=== PATIENT | female | born 1990 ===

== ENCOUNTER 2019-06-14 13:24 | Emergency (ER) | payer SELFPAY ==
--- NOTE | 2019-06-14 13:39 | Event Note ---
ED Screening Note Date of service: 06/14/19 Time: 13:36 ED Screening Note: Pt presents via police for psych eval boyfriend called police because she was cutting her arm She SI/HI-states she cuts herself to feel better This initial assessment/diagnostic orders/clinical plan/treatment(s) is/are subject to change based on patients health status, clinical progression and re- assessment by fellow clinical providers in the ED. Further treatment and workup at subsequent clinical providers discretion. Patient/guardian urged not to elope from the ED as their condition may be serious if not clinically assessed and managed. Initial orders include:
[2019-06-14 14:17] LABS: Hematocrit 44.7 % (30.3-42.9); Mean Corpuscular HGB Conc 34 % (30-34); Mean Corpuscular Volume 95 fl (79-97); Platelet Count 289 K/mm3 (140-440); Red Blood Count 4.71 M/mm3 (3.65-5.03); Red Cell Distribution Width 12.8 % (13.2-15.2)
[2019-06-14 14:26] LABS: HCG Qualitative,Urine Negative (Negative)
[2019-06-14 14:28] LABS: Bilirubin,Urine NEG (Negative); Blood,Urine LG (Negative); Color,Urine Red (Yellow); Mucus,Urine FEW /HPF; Urobilinogen,Urine < 2.0 mg/dL (<2.0)
[2019-06-14 14:32] LABS: RBC,Urine > 182.0 /HPF (0.0-6.0)
[2019-06-14] MEDS ORDERED: TETANUS,DIPH,PERTUSS(ACELL) VACCINE 0.5 ML SYRINGE IM ONE ×2 (14:33→21:47)
--- NOTE | 2019-06-14 14:35 | Emergency Department Report ---
ED General Adult HPI - General Chief complaint: Psych Stated complaint: MH EVAL Time Seen by Provider: 06/14/19 13:33 Source: patient, police (please department records not available at this time for review.), RN notes reviewed Mode of arrival: Ambulatory Limitations: Language Barrier - History of Present Illness Initial comments: chief innovation officer: Ms Shu Champagne This is a 28-year-old female. This patient is not known to this provider previously. The patient is brought to the hospital by police department after her reportedly contacted 911. Apparently, the patient cut herself superficially on the distal volar aspect of her left upper extremity because she was angry with her . The patient is adamant that she is not suicidal. The patient states that she has not tried to overdose on anything. The patient states she does not have access to guns or firearms. The patient states she has not no physically abusive relationship. The patient states she feels safe to go home. She indicated that she cut herself to provoke her . The patient is adamant that she does not want to because she has her young children to live for. She can't recall a previous tetanus vaccination. She denies additional medical complaints at this time. She is asking to go home. -: This afternoon Location: left, upper extremity Consistency: now resolved Improves with: none Worsens with: none Associated Symptoms: denies other symptoms - Related Data Allergies Allergy/AdvReac Type Severity Reaction Status Date / Time No Known Allergies Allergy Verified 06/14/19 14:35 ED Review of Systems ROS: Stated complaint: MH EVAL Other details as noted in HPI Comment: All other systems reviewed and negative Musculoskeletal: other (superficial abrasions rash to left upper extremity) Neurological: denies: headache, weakness, numbness, paresthesias, confusion, abnormal gait Psychiatric: denies: depression, auditory hallucinations, visual hallucinations, homicidal thoughts, suicidal thoughts ED Past Medical Hx - Past Medical History Previous Medical History?: No - Surgical History Hx Cholecystectomy: Yes - Social History Smoking Status: Never Smoker Substance Use Type: None ED Physical Exam - General Limitations: Language Barrier General appearance: alert, in no apparent distress - Head Head exam: Present: atraumatic, normocephalic - Eye Eye exam: Present: normal appearance, PERRL, EOMI, other (visual acuity intact to finger counting, color perception, reading at a close distance) - ENT ENT exam: Present: normal exam, normal orophraynx, mucous membranes moist, normal external ear exam - Neck Neck exam: Present: normal inspection, full ROM. Absent: tenderness, meningi smus - Respiratory Respiratory exam: Present: normal lung sounds bilaterally. Absent: respiratory distress - Cardiovascular Cardiovascular Exam: Present: regular rate, normal rhythm, normal heart sounds. Absent: bradycardia, tachycardia, irregular rhythm, systolic murmur, diastolic murmur, rubs, gallop - GI/Abdominal GI/Abdominal exam: Present: soft. Absent: distended, tenderness, guarding, rebound, rigid, pulsatile mass - Extremities Exam Extremities exam: Present: full ROM, other (2+ pulses noted in the bilateral upper, lower extremities. There is no long bone tenderness. Musculoskeletal compartments are soft. The pelvis is stable.). Absent: normal inspection (superficial linear abrasions noted on the distal alert medial aspect of left upper extremity.), calf tenderness - Back Exam Back exam: Present: normal inspection, full ROM. Absent: tenderness, CVA tenderness (R), CVA tenderness (L), paraspinal tenderness, vertebral tenderness - Neurological Exam Neurological exam: Present: alert, oriented X3, normal gait, other (there is no facial droop. The tongue is midline. Extraocular movements are intact bilaterally. Patient speaking in full complete sentences. Shoulder shrug is intact bilaterally. Hearing is grossly intact bilaterally. Visual acuity intact to finger counting and color perception at a close distance. 5/5 strength 4 extremities. Sensation intact to light touch in 4 extremities.). Absent: motor sensory deficit - Psychiatric Psychiatric exam: Absent: homicidal ideation, suicidal ideation - Skin Skin exam: Present: warm ED Course Vital Signs 06/14/19 13:33 Temperature 97.3 F L Pulse Rate 112 H Respiratory 18 Rate Blood Pressure 137/95 O2 Sat by Pulse 98 Oximetry - Reevaluation(s) Reevaluation #1: 06/14/19 15:09 Differential diagnosis, including but not limited to: Superficial abrasions, mood disorder, medical clearance Assessment and plan: 28-year-old female with self-inflicted superficial wounds, secondary to having a an argument with her , and wanting to provoke a response. She is adamant that she is not homicidal or suicidal. In the emergency room, the patient is calm, cooperative, lucid, and does not clinically intoxicated. Her abrasions are superficial and do not require laceration repair. She is n eurovascularly intact in her left upper extremity. Tetanus vaccination is administered. Physical exam otherwise unremarkable, screening laboratory studies unremarkable. The patient does not have an emergent medical condition at this time. A psychiatric consultation is requested, and the patient is evaluated by our liaising, Ms. Jordan Crawford The patient indicated to her that she is currently in the 90s states legally, and that she has no place to go, and she does not have medical insurance. A psychiatric hold/1013 is recommended for poor coping skills, lack of outpatient resources, and self-injurious behavior. In addition, collateral history and information will be required to further evaluate and determine if patient is truly safe and appropriate for psychiatric discharge. Therefore, the patient is placed on a 1013. A formal psychiatric consultation is pending at this time. At the moment, the patient does not have an immediate medical contraindication to psychiatric admission, evaluation, consultation and placement. ED Medical Decision Making - Lab Data Result diagrams: 06/14/19 13:54 06/14/19 13:54 Vital Signs 06/14/19 13:33 Temperature 97.3 F L Pulse Rate 112 H Respiratory 18 Rate Blood Pressure 137/95 O2 Sat by Pulse 98 Oximetry Lab Results 06/14/19 06/14/19 06/14/19 Range/Units 13:54 13:54 13:54 WBC (4.5-11.0) K/mm3 RBC (3.65-5.03) M/mm3 Hgb (10.1-14.3) gm/dl Hct (30.3-42.9) % MCV (79-97) fl MCH (28-32) pg MCHC (30-34) % RDW (13.2-15.2) % Plt Count (140-440) K/mm3 Sodium 141 (137-145) mmol/L Potassium 4.8 (3.6-5.0) mmol/L Chloride 103.7 (98-107) mmol/L Carbon Dioxide 24 (22-30) mmol/L Anion Gap 18 mmol/L BUN 6 L (7-17) mg/dL Creatinine 0.6 L (0.7-1.2) mg/dL Estimated GFR > 60 ml/min BUN/Creatinine Ratio 10 % Glucose 106 H (65-100) mg/dL Calcium 9.8 (8.4-10.2) mg/dL Magnesium (1.7-2.3) mg/dL Total Bilirubin 0.40 (0.1-1.2) mg/dL AST 18 (5-40) units/L ALT 24 (7-56) units/L Alkaline Phosphatase 113 (35-129) units/L Total Creatine Kinase (30-135) units/L Total Protein 7.5 (6.3-8.2) g/dL Albumin 4.8 (3.9-5) g/dL Albumin/Globulin Ratio 1.8 % Urine Color (Yellow) Urine Turbidity (Clear) Urine pH (5.0-7.0) Ur Specific [place] (1.003-1.030) Urine Protein (Negative) mg/dL Urine Glucose (UA) (Negative) mg/dL Urine Ketones (Negative) mg/dL Urine Blood (Negative) Urine Nitrite (Negative) Ur Reducing Substances Urine Bilirubin (Negative) Urine Ictotest Urine Urobilinogen (<2.0) mg/dL Ur Leukocyte Esterase (Negative) Urine WBC (Auto) (0.0-6.0) /HPF Urine RBC (Auto) (0.0-6.0) /HPF U Epithel Cells (Auto) (0-13.0) /HPF Urine Mucus /HPF Urine HCG, Qual (Negative) Salicylates < 0.3 L (2.8-20.0) mg/dL Urine Opiates Screen Urine Methadone Screen Acetaminophen < 5.0 L (10.0-30.0) ug/mL Ur Barbiturates Screen Ur Phencyclidine Scrn Ur Amphetamines Screen U Benzodiazepines Scrn Urine Cocaine Screen U Marijuana (THC) Screen Drugs of Abuse Note Plasma/Serum Alcohol (0-0.07) % 06/14/19 06/14/19 06/14/19 Range/Units 13:54 13:54 14:33 WBC 7.6 (4.5-11.0) K/mm3 RBC 4.71 (3.65-5.03) M/mm3 Hgb 15.0 H (10.1-14.3) gm/dl Hct 44.7 H (30.3-42.9) % MCV 95 (79-97) fl MCH 32 (28-32) pg MCHC 34 (30-34) % RDW 12.8 L (13.2-15.2) % Plt Count 289 (140-440) K/mm3 Sodium (137-145) mmol/L Potassium (3.6-5.0) mmol/L Chloride (98-107) mmol/L Carbon Dioxide (22-30) mmol/L Anion Gap mmol/L BUN (7-17) mg/dL Creatinine (0.7-1.2) mg/dL Estimated GFR ml/min BUN/Creatinine Ratio % Glucose (65-100) mg/dL Calcium (8.4-10.2) mg/dL Magnesium 1.90 (1.7-2.3) mg/dL Total Bilirubin (0.1-1.2) mg/dL AST (5-40) units/L ALT (7-56) units/L Alkaline Phosphatase (35-129) units/L Total Creatine Kinase 65 (30-135) units/L Total Protein (6.3-8.2) g/dL Albumin (3.9-5) g/dL Albumin/Globulin Ratio % Urine Color (Yellow) Urine Turbidity (Clear) Urine pH (5.0-7.0) Ur Specific [place] (1.003-1.030) Urine Protein (Negative) mg/dL Urine Glucose (UA) (Negative) mg/dL Urine Ketones (Negative) mg/dL Urine Blood (Negative) Urine Nitrite (Negative) Ur Reducing Substances Urine Bilirubin (Negative) Urine Ictotest Urine Urobilinogen (<2.0) mg/dL Ur Leukocyte Esterase (Negative) Urine WBC (Auto) (0.0-6.0) /HPF Urine RBC (Auto) (0.0-6.0) /HPF U Epithel Cells (Auto) (0-13.0) /HPF Urine Mucus /HPF Urine HCG, Qual (Negative) Salicylates (2.8-20.0) mg/dL Urine Opiates Screen Urine Methadone Screen Acetaminophen (10.0-30.0) ug/mL Ur Barbiturates Screen Ur Phencyclidine Scrn Ur Amphetamines Screen U Benzodiazepines Scrn Urine Cocaine Screen U Marijuana (THC) Screen Drugs of Abuse Note Plasma/Serum Alcohol < 0.01 (0-0.07) % 06/14/19 06/14/19 Range/Units Unknown Unknown WBC (4.5-11.0) K/mm3 RBC (3.65-5.03) M/mm3 Hgb (10.1-14.3) gm/dl Hct (30.3-42.9) % MCV (79-97) fl MCH (28-32) pg MCHC (30-34) % RDW (13.2-15.2) % Plt Count (140-440) K/mm3 Sodium (137-145) mmol/L Potassium (3.6-5.0) mmol/L Chloride (98-107) mmol/L Carbon Dioxide (22-30) mmol/L Anion Gap mmol/L BUN (7-17) mg/dL Creatinine (0.7-1.2) mg/dL Estimated GFR ml/min BUN/Creatinine Ratio % Glucose (65-100) mg/dL Calcium (8.4-10.2) mg/dL Magnesium (1.7-2.3) mg/dL Total Bilirubin (0.1-1.2) mg/dL AST (5-40) units/L ALT (7-56) units/L Alkaline Phosphatase (35-129) units/L Total Creatine Kinase (30-135) units/L Total Protein (6.3-8.2) g/dL Albumin (3.9-5) g/dL Albumin/Globulin Ratio % Urine Color Red (Yellow) Urine Turbidity Slightly-cloudy (Clear) Urine pH 6.0 (5.0-7.0) Ur Specific [place] 1.010 (1.003-1.030) Urine Protein 100 mg/dl (Negative) mg/dL Urine Glucose (UA) Neg (Negative) mg/dL Urine Ketones Neg (Negative) mg/dL Urine Blood Lg (Negative) Urine Nitrite Neg (Negative) Ur Reducing Substances Not Reportable Urine Bilirubin Neg (Negative) Urine Ictotest Not Reportable Urine Urobilinogen < 2.0 (<2.0) mg/dL Ur Leukocyte Esterase Sm (Negative) Urine WBC (Auto) 36.0 H (0.0-6.0) /HPF Urine RBC (Auto) > 182.0 (0.0-6.0) /HPF U Epithel Cells (Auto) 14.0 H (0-13.0) /HPF Urine Mucus Few /HPF Urine HCG, Qual Negative (Negative) Salicylates (2.8-20.0) mg/dL Urine Opiates Screen Presumptive negative Urine Methadone Screen Presumptive negative Acetaminophen (10.0-30.0) ug/mL Ur Barbiturates Screen Presumptive negative Ur Phencyclidine Scrn Presumptive negative Ur Amphetamines Screen Presumptive negative U Benzodiazepines Scrn Presumptive negative Urine Cocaine Screen Presumptive negative U Marijuana (THC) Screen Presumptive negative Drugs of Abuse Note Disclamer Plasma/Serum Alcohol (0-0.07) % Critical care attestation.: If time is entered above; I have spent that time in minutes in the direct care of this critically ill patient, excluding procedure time. ED Disposition Clinical Impression: Self-inflicted injury, Abrasion, Medical clearance for psychiatric admission Disposition: [id number]/TX-[id number] PSY HOSP/PSY UNIT Is pt being admited?: No Does the pt Need Aspirin: No Condition: Good
[2019-06-14 14:40] LABS: Amphetamine Screen,Urine PRESUMPTIVE NEGATIVE; Benzodiazepines Screen,Urine PRESUMPTIVE NEGATIVE; Cannabinoid Screen,Urine PRESUMPTIVE NEGATIVE; Cocaine Screen,Urine PRESUMPTIVE NEGATIVE; Methadone Screen,Urine PRESUMPTIVE NEGATIVE; Opiate Screen,Urine PRESUMPTIVE NEGATIVE
[2019-06-14 14:42] LABS: Alanine Aminotransferase 24 units/L (7-56); Albumin 4.8 g/dL (3.9-5); BUN/Creatinine Ratio 10; Blood Urea Nitrogen 6 mg/dL (7-17); Calcium 9.8 mg/dL (8.4-10.2); Hemolysis Index 24
[2019-06-14] MEDS ORDERED: BACITRACIN ZINC OINT 28.4 GM TP ONE (15:00)
[2019-06-14] MEDS ORDERED: LORazepam 2 MG/ML VIAL IM PRN (15:17)
[2019-06-14] MEDS ORDERED: HALOPERIDOL LACTATE 5 MG/1 ML INJ IM PRN (15:17)
[2019-06-14] MEDS ORDERED: ACETAMINOPHEN 325 MG TAB PO ONE (21:56)
--- NOTE | 2019-06-15 07:02 | Consultation ---
History of Present Illness - Reason for Consult Consult date: 06/15/19 Reason for consult: Inital Psychiatric Evaluation - Chief Complaint Chief complaint: Unable to Assess. - History of Present Psychiatric Illness Patient is a 28-year-old female. This patient is not known to this provider previously. Per record the patient is brought to the hospital by police department after her reportedly contacted 911. Apparently, the patient cut herself superficially on the distal volar aspect of her left upper extremity because she was angry with her . The patient is adamant that she is not suicidal. Provider unable to assess at this time. Patient is [place] speaking. She reports that she speaks very little Portuguese. Currently, the language line is unavailable. No php consultant is present. Will attempt to reassess at a later time. Medications and Allergies Allergies Allergy/AdvReac Type Severity Reaction Status Date / Time No Known Allergies Allergy Verified 06/14/19 14:35 Home Medications Medication Instructions Recorded Confirmed Last Taken Type No Known Home Medications [No 06/15/19 06/15/19 Unknown History Reported Home Medications] Active Meds: Active Medications Haloperidol Lactate (Haldol) 5 mg IM Q6HR PRN PRN Reason: Agitation Lorazepam (Ativan) 2 mg IM Q4HR PRN PRN Reason: Agitation Mental Status Exam - Vital signs Last Vital Signs Temp 97.9 F 06/15/19 01:15 Pulse 76 06/15/19 01:15 Resp 16 06/15/19 01:15 BP 114/75 06/15/19 01:15 Pulse Ox 99 06/15/19 01:15 - Exam Narrative exam: Unable to Assess. Results Result Diagrams: 06/14/19 13:54 06/14/19 13:54 Abnormal lab results 06/14/19 06/14/19 06/14/19 Range/Units 13:54 13:54 13:54 Hgb (10.1-14.3) gm/dl Hct (30.3-42.9) % RDW (13.2-15.2) % BUN 6 L (7-17) mg/dL Creatinine 0.6 L (0.7-1.2) mg/dL Glucose 106 H (65-100) mg/dL Urine WBC (Auto) (0.0-6.0) /HPF U Epithel Cells (Auto) (0-13.0) /HPF Salicylates < 0.3 L (2.8-20.0) mg/dL Acetaminophen < 5.0 L (10.0-30.0) ug/mL 06/14/19 06/14/19 Range/Units 13:54 Unknown Hgb 15.0 H (10.1-14.3) gm/dl Hct 44.7 H (30.3-42.9) % RDW 12.8 L (13.2-15.2) % BUN (7-17) mg/dL Creatinine (0.7-1.2) mg/dL Glucose (65-100) mg/dL Urine WBC (Auto) 36.0 H (0.0-6.0) /HPF U Epithel Cells (Auto) 14.0 H (0-13.0) /HPF Salicylates (2.8-20.0) mg/dL Acetaminophen (10.0-30.0) ug/mL All other labs normal. Assessment and Plan Assessment and plan: Will reassess at a later time. At this time the translation line is unavailable and no php consultant is present.
[2019-06-15] MEDS ORDERED: ACETAMINOPHEN 325 MG TAB PO ONE (17:15)
[2019-06-15] MEDS ORDERED: ACETAMINOPHEN 325 MG TAB ONE (17:20)
[2019-06-16 08:37] VITALS: BP 135/93
--- NOTE | 2019-06-16 13:30 | Progress Note ---
Subjective - Reason for Consult Consult date: 06/16/19 Reason for consult: Psychiatric Follow-up Evaluation - Chief Complaint Chief complaint: Patient is a 28-year-old female that presents to the hospital after she cut herself. The patient is brought to the hospital by police department after her reportedly contacted 911. Apparently, the patient cut herself superficially on the distal volar aspect of her left upper extremity because she was angry with her . She continues to be adamant that she was not trying to commit suicide. Today the patient is calm and cooperative during the assessment. Patient reports that she learned that she has to take things slowly, never to hurt herself in any moment or anyone else. Her coping skills are as follow watch tv, relax, and pray. is at bedside. He reports that he will support her. No gestures of suicide/self harm. Translation is provided by Kathy Dennison Mental Status Exam - Vital signs Last Vital Signs Temp 97.8 F 06/16/19 08:36 Pulse 77 06/16/19 08:36 Resp 18 06/15/19 20:31 BP 135/93 06/16/19 08:36 Pulse Ox 100 06/16/19 08:36 - Exam Narrative exam: Mental Status Exam: Appearance: cooperative, [facility] attire Behavior: calm Speech: regular rate with and tone Mood: "I'm good" Affect: congruent to mood Thought Process: organized/logical Thought Content: patient denies SI/HI's, A/VH's, and delusions Cognition: A/O x 3 Insight: fair Judgment: fair Assessment and Plan Impression: MDD, single episode, severe without psychosis. Today the patient is calm and cooperative during the assessment. She denies SI/HI's, A/VH's, and delusions. No gestures of suicide/self harm noted. At the time of discharge patient is in no imminent danger to self/others. Patient presents calm, cooperative, and compliant. Discussed coping skills and medications. Patient verbalizes understanding. Informed in case of a psychiatric emergency patient is call 911, report to the ER, or call the crisis line. Recommendation/Plan: 1. Will rescind 1013. 2. Collateral was gained. Patient is in no imminent danger to self or others. Disposition: Will rescind 1013 patient no longer meets criteria. Will staff with Dr. Ana Carlton.
== END 2019-06-16 15:34 | disposition home or self-care (01) ==
LOC: ED 13:24 → EEVIPCON 13:24 → ED 06-16 15:34
DX: S60.812A Abrasion of left wrist, initial encounter (principal); F32.9 Major depressive disorder, single episode, unspecified; X78.9XXA Intentional self-harm by unspecified sharp object, initial encounter; Y93.89 Activity, other specified; Y92.89 Other specified places as the place of occurrence of the external cause; Y99.8 Other external cause status
CPT/HCPCS: 36415; 80053; 80307; 80320; 81001; 81025; 82550; 83735; 85027; 87086; 90471; 90715; G0480